=== PATIENT | female | born 1995 | race Hispanic/Latino ===

== ENCOUNTER 2025-10-24 16:16 | Emergency (ER) | payer OTHER ==
[~2025-10-24] VITALS: Ht 175.3 cm; Wt 100.9 kg
[2025-10-24 16:19] VITALS: TEMP 98.2
[2025-10-24] MEDS: LIDOCAINE 5% PATCH TD ONE (19:23)
[2025-10-24] MEDS: GABAPENTIN 300 MG CAP PO ONE (19:23)
[2025-10-24] MEDS: ACETAMINOPHEN 325 MG TAB PO ONE (19:23)
[2025-10-24] MEDS ORDERED: LIDO1ADH93 TOP (20:10)
[2025-10-24] MEDS ORDERED: GABA-1172 PO (20:10)
[2025-10-24 20:19] VITALS: BP 125/75; O2SAT 99
== END 2025-10-24 20:24 | disposition home or self-care (01) ==
LOC: M ED 16:16
DX: M51.26 Other intervertebral disc displacement, lumbar region (principal); Z91.013 Allergy to seafood; Z79.899 Other long term (current) drug therapy